=== PATIENT | female | born 1960 | race American Indian/Alaskan Native ===

== ENCOUNTER 2016-10-12 14:59 | Inpatient (IN) | payer OTHER ==
[2016-10-12] MEDS ORDERED: NACL 0.9% 1000 ML 1,000 ML IV ONE ×2 (16:00→19:13)
[2016-10-12 17:16] LABS: Alanine Aminotransferase 29 units/L (7-56); Alkaline Phosphatase 308 units/L (35-129); Anion Gap 27 mmol/L; Bilirubin,Total < 0.2 mg/dL (0.1-1.2); Blood Urea Nitrogen 90 mg/dL (7-17); Calcium 10.3 mg/dL (8.4-10.2); Carbon Dioxide 14 mmol/L (22-30); Glucose 109 mg/dL (65-100); Lipase 37 units/L (13-60); Potassium 5.9 mmol/L (3.6-5.0); Sodium 130 mmol/L (137-145); Total Protein 8.1 g/dL (6.3-8.2)
[2016-10-12 17:23] LABS: Basophils % (Auto) 0.7 % (0.0-1.8); Eosinophils % (Auto) 5.2 % (0.0-4.3); Hematocrit 30.3 % (30.3-42.9); Hemoglobin 10.1 gm/dl (10.1-14.3); Mean Corpuscular HGB Conc 33 % (30-34); Mean Corpuscular Hemoglobin 31 pg (28-32); Mean Corpuscular Volume 92 fl (79-97); Platelet Count 592 K/mm3 (140-440); Red Blood Count 3.29 M/mm3 (3.65-5.03); Red Cell Distribution Width 16.9 % (13.2-15.2); White Blood Count 5.4 K/mm3 (4.5-11.0)
[2016-10-12 17:32] LABS: INR 1.06 (0.87-1.13); Partial Thromboplastin Time 30.4 Sec. (24.2-36.6)
[2016-10-12] MEDS ORDERED: ZOFRAN IV ONE (19:13)
[2016-10-12] MEDS ORDERED: MORPHINE IV ONE (19:13)
[2016-10-12] MEDS ORDERED: KIONEX PO ONE (19:14)
[2016-10-12] MEDS ORDERED: PROVENTIL IH ONE (19:14)
--- NOTE | 2016-10-12 19:14 | Emergency Department Report ---
HPI - General Chief Complaint: GI Bleed - HPI HPI: The patient is a 65-year-old female status post colostomy, who presents for evaluation of abdominal pain. The patient reports midline lower abdominal pain for the past 2 days, constant since onset, cramping in quality, at times sharp, moderate to severe, and associated with bleeding into her colostomy bad. The patient denies fever, chills, night sweats, dysuria, hematuria, flank pain, genital discharge, chest pain, dyspnea. ED Past Medical Hx - Social History Smoking Status: Never Smoker Substance Use Type: None - Medications Home Medications: Home Medications Medication Instructions Recorded Confirmed Last Taken Type metroNIDAZOLE [Flagyl] 500 mg PO Q8HR #21 tablet 09/03/15 Unknown Rx ED Review of Systems ROS: Stated complaint: BLEEDING INTO COLOSTOMY BAG Other details as noted in HPI Constitutional: denies: fever ENT: denies: throat or neck pain Respiratory: denies: cough, shortness of breath Cardiovascular: denies: chest pain Endocrine: denies unexplained weight loss or gain Gastrointestinal: reports abdominal pain Genitourinary: denies: dysuria Musculoskeletal: denies: leg swelling Skin: denies: rash Neurological: denies: headache Hematological/Lymphatic: denies: easy bleeding or easy bruising Psych: denies sadness or hopelessness Physical Exam - Physical Exam Vital Signs: Vital Signs 10/12/16 15:54 Temperature 97.8 F Pulse Rate 117 H Respiratory 18 Rate Blood Pressure 102/66 O2 Sat by Pulse 100 Oximetry Physical Exam: General: well-nourished, well-developed, no acute distress Head: Normocephalic, atraumatic Eyes: normal sclera ENT: Mucous membranes are pink and moist Neck: trachea midline, neck supple, No neck stiffness, no cervical adenopathy Respiratory: Breath sounds equal bilaterally, no wheezing, rales, or rhonchi Cardio: S1 and S2 present, no murmurs, rubs, gallops, capillary refill is brisk Abdomen: Normoactive bowel sounds, soft abdomen, peribumbicial tenderness to palpation present, no rigidity, no guarding or rebound tenderness Musc: No pitting edema Skin: No rash Neuro: no facial drooping, normal speech Psych: Normal affect ED Course Vital Signs 10/12/16 15:54 Temperature 97.8 F Pulse Rate 117 H Respiratory 18 Rate Blood Pressure 102/66 O2 Sat by Pulse 100 Oximetry ED Medical Decision Making - Lab Data Result diagrams: 10/12/16 16:27 10/12/16 16:27 - Medical Decision Making The patient was seen and examined by myself. The patient is placed on a cardiac monitor technician and continuous pulse ox. On initial evaluation, the patient was found to be in no distress. Evaluation orders were placed. The patient is given 1 L normal saline fluid bolus for treatment of dehydration, IV Zofran, and IV morphine for pain. Lab results revealed elevated potassium level 5.9, and elevated creatinine of 2.0. An albuterol nebulizer treatment, IV calcium gluconate, and Kayexalate are ordered for treatment of the patient's hyperkalemia. The on-call hospitalist service was contacted. They agreed to admit the patient for further treatment and close monitoring. The ED admit order was placed. The patient was admitted in guarded condition. Critical care attestation.: If time is entered above; I have spent that time in minutes in the direct care of this critically ill patient, excluding procedure time. ED Disposition Clinical Impression: Abdominal pain, acute, periumbilical, Acute hyperkalemia, Dehydration ARF (acute renal failure) Qualifiers: Acute renal failure type: unspecified Qualified Code(s): N17.9 - Acute kidney failure, unspecified Disposition: OP ADMITTED IP TO THIS HOSP Is pt being admited?: Yes Does the pt Need Aspirin: Yes Condition: Serious Referrals: PRIMARY CARE, [Primary Care Provider] - 3-5 Days Forms: Accompanied Note Time of Disposition: 19:05
--- NOTE | 2016-10-12 19:28 | Admit Criteria Form ---
Admission Criteria Documentation: URINARY COMPLICATIONS Clinical Indications for Inpatient Care (Place 'X' for any and all applicable criteria): Ongoing inpatient care may be indicated for urinary complications with ANY ONE of the following: [ ]I. Urinary tract infection requiring inpatient care as indicated by ANY ONE of the following(8)(19)(20): [ ]a) Severe symptoms (eg, high fever, severe pain) [ ]b) Vomiting or dehydration requiring ongoing inpatient care [ ]c) IV antibiotic needs that cannot be managed at lower level of care [ ]d) Hemodynamic instability [ ]e) Obstruction of collecting system by stone or tumor [ ]II. Urinary retention requiring drainage or surgery (3)(4)(5)(17)(18) [X ]III. Renal failure (Use Renal Failure Criteria for further information.) [ ]IV. Oliguria(30) [ ]V. Post obstructive diuresis requiring close monitoring of urine output and intravenous compensation for excessive fluid losses(33) Extended stay beyond goal length of stay for primary condition may be needed until ALL of the following are present(3)(4)(5)(8): [ ]a) Renal function (creatinine) at baseline, or daily decreases in creatinine consistent with renal function return [ ]b) Voiding adequately or with urinary catheter or percutaneous suprapubic tube and management regimen in place that is performable at lower level of care. [ ]c) Urine output adequate [ ]d) Fever absent or resolving [ ]e) Infection absent or treatable at next level of care The original [employer] content created by [employer] has been revised. The portions of the content which have been revised are identified through the use of italic text or in bold, and [facility] has neither reviewed nor approved the modified material. All other unmodified content is copyright [employer] Please see references footnoted in the original [facility] edition 2016 Admission Criteria Met: Yes
[2016-10-12] MEDS ORDERED: CALCIUM GLUCONATE 1,000 MG in NACL 0.9% 100 ML IV ONE (20:30)
[2016-10-12] MEDS ORDERED: TYLENOL PO PRN (22:54)
--- NOTE | 2016-10-12 22:55 | History and Physical Report ---
History of Present Illness Date of examination: 10/12/16 Date of admission: 10/12/16 19:24 History of present illness: 5-year-old woman with a history of rectal cancer comes emergency room because she had noted blood coming from the colostomy site starting yesterday. Patient ran out of her colostomy bag few days now Patient denies chest pain, palpitation, shortness of breath, cough, abdominal pain, hematochezia, dysuria, frequency, focal weakness, dysarthria, fever chills , polydipsia polyuria, hot or cold intolerance, easy bruisability, or rash or bleeding from mucosal membrane, rhinorrhea, epistaxis, earache, tinnitus, blurry vision, eye discharge, anxiety, depression. Other review of systems negative PAST SURGICAL HISTORY: Colostomy SOCIAL HISTORY: Does not smoke, drink or any drug use in the last months FAMILY HISTORY: Hypertension Medications and Allergies Allergies Allergy/AdvReac Type Severity Reaction Status Date / Time No Known Allergies Allergy Verified 09/03/15 02:33 Home Medications Medication Instructions Recorded Confirmed Last Taken Type metroNIDAZOLE [Flagyl] 500 mg PO Q8HR #21 tablet 09/03/15 Unknown Rx Exam - Physical Exam Narrative exam: Gen. appearance: Patient lying in bed, no apparent distress HEENT: Normocephalic, atraumatic, pupils equally round and reactive to light, extraocular movement intact, and no sclericterus,. No JVD or thyromegaly or nodule,neck supple, no carotid bruit ,mucous membranes moist, no exudate or erythema Heart: S1, S2, regular rate and rhythm Lungs: Clear to auscultation bilaterally, breathing comfortable Abdomen: Stoma site without erythema, no blood noted, Positive bowel sounds, nontender, nondistended, no organomegaly Extremity: No edema, cyanosis, clubbing Skin: No rash, nodules, warm, dry Neuro: Oriented 3, cranial nerves II-12 intact, speech is fluent, motor and sensory intact - Constitutional Vitals: Temp Pulse Resp BP Pulse Ox 97.8 F 115 H 21 107/60 100 10/12/16 15:54 10/12/16 21:40 10/12/16 21:40 10/12/16 21:40 10/12/16 21:40 Results - Labs CBC & Chem 7: 10/12/16 16:27 10/12/16 16:27 Assessment and Plan GI bleed/bleeding from colostomy Acute Renal failure Hyperkalemia, status post treatment History of rectal cancer Admits medicine Start IV fluid, obtain CAT scan of the abdomen and pelvis Consult GI, check serial hemoglobin, start IV morphine Start DVT prophylaxis
[2016-10-13] MEDS: BENADRYL PO PRN (01:39)
[2016-10-13] MEDS: NACL 0.9% 1000 ML 1,000 ML IV SCH ×2 (01:39→17:33)
[2016-10-13] MEDS: MORPHINE IV PRN ×5 (01:40→21:31)
[2016-10-13 01:56] LABS: Hematocrit 26.7 % (30.3-42.9); Hemoglobin 8.7 gm/dl (10.1-14.3)
--- NOTE | 2016-10-13 02:04 | Cat Scan Report ---
FINAL REPORT PROCEDURE: CT ABDOMEN PELVIS WO CON TECHNIQUE: Computerized axial tomography of the abdomen and pelvis was performed without intravenous contrast. This study is performed without intravascular contrast material and its sensitivity for abdominal and pelvic pathology, including neoplasms, inflammation, abscess, free fluid, thrombosis, arterial dissection and infarction, is reduced compared with a contrast enhanced study. HISTORY: bleeding from colostomy COMPARISON: No prior studies are available for comparison. FINDINGS: Visualized lower thorax: No significant abnormality. Liver: Normal size and attenuation. Spleen: Normal size and attenuation. Gallbladder and biliary system: Normal. Pancreas: Normal. Adrenals: Normal. Kidneys: Normal. GI tract: No obstruction is seen. There is moderate fecal debris in the colon. The ostomy in the right mid abdomen is patent. There has been previous surgery in the mid lower abdomen and posterior pelvic region.. Lymph nodes and mesentery: Normal. Vasculature: Mild atherosclerosis of the aorta. Bladder: Normal. Reproductive organs: The uterus is slightly enlarged. Fibroid formation is suspected.. Peritoneum: No free fluid. Musculoskeletal structures: No significant abnormality. Other: None. IMPRESSION: Moderate fecal debris identified within the colon. The mid right abdominal ostomy appears patent. No obstruction is seen. Evaluation the bowel is limited without oral and IV contrast. The uterus is slightly enlarged. Fibroid formation is suspected..
[2016-10-13 08:04] LABS: Hematocrit 22.6 % (30.3-42.9); Hemoglobin 7.6 gm/dl (10.1-14.3); Red Blood Count 2.49 M/mm3 (3.65-5.03); White Blood Count 4.8 K/mm3 (4.5-11.0)
[2016-10-13 08:05] LABS: Mean Corpuscular HGB Conc 34 % (30-34); Mean Corpuscular Hemoglobin 31 pg (28-32); Mean Corpuscular Volume 91 fl (79-97); Platelet Count 426 K/mm3 (140-440); Red Cell Distribution Width 16.6 % (13.2-15.2)
[2016-10-13 08:49] LABS: BUN/Creatinine Ratio 52.5; Calcium 8.9 mg/dL (8.4-10.2); Chloride 109.1 mmol/L (98-107)
[2016-10-13] MEDS ORDERED: NACL 0.9% 500 ML 500 ML IV ONE ×2 (08:58→09:02)
[2016-10-13 09:00] LABS: Blastocytes % (Manual) 0 %; Diff Status Complete; Hypochromasia Few; Large Platelets Few; Platelet Clumps Rare; Platelet Estimate Appears Increased; Smudge Cells Few
--- NOTE | 2016-10-13 15:09 | Gastroenterology Consultation ---
History of Present Illness - Reason for Consult Consult date: 10/13/16 GI bleeding Requesting physician: VICENTE ALLAN - History of Present Illness Ms Zaragoza is a 55-year-old woman with a history of rectal cancer comes emergency room because noted blood in her colostomy x 24 hours. She reports she has a hx of rectal cancer diagnosed at [place] last year. She also underwent chemo/radiation and surgery at [place]. She denies abdominal pain or routine NSAID use. On admission H/H stable with noted drop overnight from 10.1/30.3 tp 7.6/22.6. Currently receiving PRBC. Past History Past Medical History: cancer Past Surgical History: Other (bowel resection/ colostomy) Social history: lives with family Family history: no significant family history Medications and Allergies Allergies Allergy/AdvReac Type Severity Reaction Status Date / Time No Known Allergies Allergy Verified 09/03/15 02:33 Home Medications Medication Instructions Recorded Confirmed Last Taken Type metroNIDAZOLE [Flagyl] 500 mg PO Q8HR #21 tablet 09/03/15 10/13/16 Unknown Rx Active Meds: Active Medications Acetaminophen (Tylenol) 650 mg PO Q4H PRN PRN Reason: Pain MILD(1-3)/Fever >100.5/ADHIKARI Diphenhydramine HCl (Benadryl) 25 mg PO Q6H PRN PRN Reason: Itching Last Admin: 10/13/16 01:39 Dose: 25 mg Sodium Chloride (Nacl 0.9% 1000 Ml) 1,000 mls @ 100 mls/hr IV DIRECT JUAQUIN Last Admin: 10/13/16 01:39 Dose: 100 mls/hr Pantoprazole Sodium 80 mg/ (Sodium Chloride) 100 mls @ 10 mls/hr IV Q10H JUAQUIN PRN Reason: 8 MG/HR Morphine Sulfate (Morphine) 2 mg IV Q4H PRN PRN Reason: Pain, Moderate (4-6) Last Admin: 10/13/16 10:00 Dose: 2 mg Ondansetron HCl (Zofran) 4 mg IV Q8H PRN PRN Reason: N/V unrelieved by Reglan Review of Systems - Review of Systems Constitutional: fatigue, weakness Gastrointestinal: other (BRB per colostomy) Exam - Constitutional Vital Signs: Temp Pulse Resp BP Pulse Ox 98.7 F 89 16 97/56 100 10/13/16 14:32 10/13/16 14:32 10/13/16 09:39 10/13/16 14:32 10/13/16 09:39 General appearance: no acute distress, other (thin) - EENT Eyes: EOM intact ENT: hearing intact - Neck Neck: supple - Respiratory Respiratory: bilateral: CTA - Cardiovascular Rhythm: regular Heart Sounds: Present: S1 & S2, systolic murmur Extremities: No edema - Gastrointestinal General gastrointestinal: Present: non-distended, normal bowel sounds, other ( colostomy) - Integumentary Integumentary: Present: warm, dry - Neurologic Neurological: alert and oriented x3 - Psychiatric Psychiatric: cooperative - Labs CBC & Chem 7: 10/13/16 07:29 10/13/16 07:29 Lab Results: Laboratory Results - last 24 hr 10/13/16 10/13/16 10/13/16 01:30 07:29 07:29 WBC 4.8 RBC 2.49 L Hgb 8.7 L 7.6 L Hct 26.7 L 22.6 L MCV 91 MCH 31 MCHC 34 RDW 16.6 H Plt Count 426 [place] % (Auto) Staple Cutter Add Manual Diff Complete Total Counted 100 Seg Neuts % (Manual) 64.0 Band Neutrophils % 1.0 Lymphocytes % (Manual) 8.0 L Reactive Lymphs % (Man) 1.0 Monocytes % (Manual) 13.0 H Eosinophils % (Manual) 11.0 H Basophils % (Manual) 2.0 H Metamyelocytes % 0 Myelocytes % 0 Promyelocytes % 0 Blast Cells % 0 Nucleated RBC % Not Reportable Seg Neutrophils # Man 3.1 Band Neutrophils # 0.0 Lymphocytes # (Manual) 0.4 L Abs React Lymphs (Man) 0.0 Monocytes # (Manual) 0.6 Eosinophils # (Manual) 0.5 H Basophils # (Manual) 0.1 Metamyelocytes # 0.0 Myelocytes # 0.0 Promyelocytes # 0.0 Blast Cells # 0.0 WBC Morphology Not Reportable Hypersegmented Neuts Not Reportable Hyposegmented Neuts Not Reportable Hypogranular Neuts Not Reportable Smudge Cells Few Toxic Granulation Not Reportable Toxic Vacuolation Not Reportable Dohle Bodies Not Reportable Pelger-Huet Anomaly Not Reportable Laney Rods Not Reportable Platelet Estimate Appears increased Clumped Platelets Rare Plt Clumps, EDTA Not Reportable Large Platelets Few Giant Platelets Not Reportable Platelet Satelliting Not Reportable Plt Morphology Comment Not Reportable RBC Morphology Not Reportable Dimorphic RBCs Not Reportable Polychromasia Not Reportable Hypochromasia Few Poikilocytosis Not Reportable Anisocytosis Not Reportable Microcytosis Not Reportable Macrocytosis Not Reportable Spherocytes Not Reportable Pappenheimer Bodies Not Reportable Sickle Cells Not Reportable Target Cells Not Reportable Tear Drop Cells Not Reportable Ovalocytes Not Reportable Helmet Cells Not Reportable [place] Bodies Not Reportable [place] Rings Not Reportable [place] Cells Not Reportable Bite Cells Not Reportable Crenated Cell Not Reportable Elliptocytes Not Reportable Acanthocytes (Spur) Not Reportable Rouleaux Not Reportable Hemoglobin C Crystals Not Reportable Schistocytes Not Reportable Malaria parasites Not Reportable Helder Bodies Not Reportable Hem Pathologist Commnt No Sodium 139 D Potassium 5.0 Chloride 109.1 H Carbon Dioxide 15 L Anion Gap 20 BUN 63 H Creatinine 1.2 Estimated GFR 56 BUN/Creatinine Ratio 52.50 Glucose 95 Calcium 8.9 Assessment and Plan 1. GI bleed -No blood per colostomy at this time, but concern for rapid UGI bleed with elevated BUN and significant drop in H/H. -S/P PRBC -INR WNL -NPO -EGD today. -PPI gtt started per primary -Further recommendations to follow EGD.
[2016-10-13] MEDS ORDERED: DIPRIVAN 10 MG/ML IV ONE ×2 (15:50)
--- NOTE | 2016-10-13 16:16 | Anesthesia Day of Surgery ---
Anesthesia Day of Surgery - Day of Surgery Patient Examined: Yes Patient H&P Reviewed: Yes Patient is NPO: Yes
--- NOTE | 2016-10-13 16:16 | Anesthesia Consultation ---
Anesthesia Consult and Med Hx Date of service: 10/13/16 - Airway Anesthetic Teeth Evaluation: Poor Mallampati Class: Class II Intubation Access Assessment: Probably Good - Pulmonary Exam CTA: Yes - Cardiac Exam Cardiac Exam: RRR - Pre-Operative Health Status ASA Pre-Surgery Classification: ASA3 Proposed Anesthetic Plan: MAC - Pulmonary Hx Smoking: Yes Hx Asthma: Yes COPD: No Hx Pneumonia: No Hx Sleep Apnea: No - Cardiovascular System Hx Hypertension: No Hx Heart Attack/AMI: No - Central Nervous System Hx Seizures: No CVA: No Hx Psychiatric Problems: No - Endocrine Hx Renal Disease: No Hx End Stage Renal Disease: No Hx Liver Disease: No - Hematic Hx Anemia: Yes (recieved 2 PRBC) Hx Sickle Cell Disease: No - Other Systems Hx Cancer: Yes (rectal CA sp colostomy) - Additional Comments Anesthesia Medical History Comments: NAC
--- NOTE | 2016-10-13 16:24 | Post Operative Note ---
Pre-op diagnosis: GI bleed Post-op diagnosis: same Findings: EGD: hiatal hernia - irregular z-line (bx's) - mild gastritis - otherwise benign
[2016-10-13] MEDS ORDERED: WATER FOR IRRIG STERILE IR ONE (16:37)
[2016-10-13] MEDS: PROTONIX 80 MG in NACL 0.9% 100 ML IV SCH (17:33)
[2016-10-13] MEDS ORDERED: GOLYTELY PO ONE (18:00)
--- NOTE | 2016-10-13 18:10 | Progress Note ---
Assessment and Plan Assessment and plan: 55-year-old woman with a history of rectal cancer comes emergency room because she had noted blood coming from the colostomy site starting yesterday. Patient ran out of her colostomy bag few days now Patient denies chest pain, palpitation, shortness of breath, cough, abdominal pain, hematochezia, dysuria, frequency, focal weakness, dysarthria, fever chills , polydipsia polyuria, hot or cold intolerance, easy bruisability, or rash or bleeding from mucosal membrane, rhinorrhea, epistaxis, earache, tinnitus, blurry vision, eye discharge, anxiety, depression. Other review of systems negative * Acute blood loss anemia concerning for upper GI bleed * Prerenal azotemia * Acute kidney injury present on admission likely * Hyperkalemia * Rectal CA-last radiation therapy 4 months ago awaiting reevaluation Plan * Discussed with GI team for endoscopy this morning * Transfuse 2 units packed red blood cells * Replace electrolytes * Pain control * DVT and GI prophylaxis avoid antiplatelets The high probability of a clinically significant, sudden or life threatening deterioration of the [hematology] system(s) required my full and direct attention, intervention and personal management. The aggregate critical care time was [35] minutes. This time is in addition to time spent performing reported procedures but includes the following: [x] Data Review and interpretation [x] Patient assessment and monitoring of vital signs [x] Documentation [x] Medication orders and management History Interval history: F/U Bleed in colostomy Patient seen and examined this morning in no acute distress Denies any chest pain, nausea, vomiting, diarrhea No fever noted blood pressure controlled No adverse events reported to me by nursing staff Hospitalist Physical - Physical exam Narrative exam: VITAL SIGNS: Reviewed. GENERAL: The patient appeared, cachectic. Vital signs as documented. HEAD: No signs of head trauma. Temporal wasting EYES: Pupils are equal. Extraocular motions intact. EARS: Hearing grossly intact. MOUTH: Oropharynx is normal. NECK: No adenopathy, no JVD. CHEST: Chest with clear breath sounds bilaterally. No wheezes, rales, or rhonchi. CARDIAC: Regular rate and rhythm. S1 and S2, without murmurs, gallops, or rubs. VASCULAR: No Edema. Peripheral pulses normal and equal in all extremities. ABDOMEN: Soft, without detectable tenderness. Colostomy bag in place no bleeding noted. No sign of distention. No rebound or guarding, and no masses palpated. Bowel Sounds normal. MUSCULOSKELETAL: Good range of motion of all major joints. Extremities without clubbing, cyanosis or edema. NEUROLOGIC EXAM: Alert and oriented x 3. No focal sensory or strength deficits. Speech normal. Follows commands. PSYCHIATRIC: Mood normal. SKIN: No rash or lesions. - Constitutional Vitals: Temp Pulse Resp BP Pulse Ox 98.1 F 102 H 16 99/61 97 10/13/16 17:40 10/13/16 17:40 10/13/16 17:40 10/13/16 17:40 10/13/16 17:40 Results - Labs CBC & Chem 7: 10/13/16 07:29 10/13/16 07:29 Labs: Laboratory Last Values WBC 4.8 K/mm3 (4.5-11.0) 10/13/16 07:29 RBC 2.49 M/mm3 (3.65-5.03) L 10/13/16 07:29 Hgb 7.6 gm/dl (10.1-14.3) L 10/13/16 07:29 Hct 22.6 % (30.3-42.9) L 10/13/16 07:29 MCV 91 fl (79-97) 10/13/16 07:29 MCH 31 pg (28-32) 10/13/16 07:29 MCHC 34 % (30-34) 10/13/16 07:29 RDW 16.6 % (13.2-15.2) H 10/13/16 07:29 Plt Count 426 K/mm3 (140-440) 10/13/16 07:29 Lymph % (Auto) 14.3 % (13.4-35.0) 10/12/16 16:27 Richardson % (Auto) Heel Packer 10/13/16 07:29 Eos % (Auto) 5.2 % (0.0-4.3) H 10/12/16 16:27 Baso % (Auto) 0.7 % (0.0-1.8) 10/12/16 16:27 Lymph # 0.8 K/mm3 (1.2-5.4) L 10/12/16 16:27 Richardson # 0.7 K/mm3 (0.0-0.8) 10/12/16 16: Eos # 0.3 K/mm3 (0.0-0.4) 10/12/16 16: Baso # 0.0 K/mm3 (0.0-0.1) 10/12/16 16:27 Add Manual Diff Complete 10/13/16 07:29 Total Counted 100 10/13/16 07:29 Seg Neutrophils % 66.6 % (40.0-70.0) 10/12/16 16:27 Seg Neuts % (Manual) 64.0 % (40.0-70.0) 10/13/16 07:29 Band Neutrophils % 1.0 % 10/13/16 07:29 Lymphocytes % (Manual) 8.0 % (13.4-35.0) L 10/13/16 07:29 Reactive Lymphs % (Man) 1.0 % 10/13/16 07:29 Monocytes % (Manual) 13.0 % (0.0-7.3) H 10/13/16 07:29 Eosinophils % (Manual) 11.0 % (0.0-4.3) H 10/13/16 07:29 Basophils % (Manual) 2.0 % (0.0-1.8) H 10/13/16 07:29 Metamyelocytes % 0 % 10/13/16 07:29 Myelocytes % 0 % 10/13/16 07:29 Promyelocytes % 0 % 10/13/16 07:29 Blast Cells % 0 % 10/13/16 07:29 Nucleated RBC % Not Reportable 10/13/16 07:29 Seg Neutrophils # 3.6 K/mm3 (1.8-7.7) 10/12/16 16:27 Seg Neutrophils # Man 3.1 K/mm3 (1.8-7.7) 10/13/16 07:29 Band Neutrophils # 0.0 K/mm3 10/13/16 07:29 Lymphocytes # (Manual) 0.4 K/mm3 (1.2-5.4) L 10/13/16 07:29 Abs React Lymphs (Man) 0.0 K/mm3 10/13/16 07:29 Monocytes # (Manual) 0.6 K/mm3 (0.0-0.8) 10/13/16 07:29 Eosinophils # (Manual) 0.5 K/mm3 (0.0-0.4) H 10/13/16 07:29 Basophils # (Manual) 0.1 K/mm3 (0.0-0.1) 10/13/16 07:29 Metamyelocytes # 0.0 K/mm3 10/13/16 07:29 Myelocytes # 0.0 K/mm3 10/13/16 07:29 Promyelocytes # 0.0 K/mm3 10/13/16 07:29 Blast Cells # 0.0 K/mm3 10/13/16 07:29 WBC Morphology Not Reportable 10/13/16 07:29 Hypersegmented Neuts Not Reportable 10/13/16 07:29 Hyposegmented Neuts Not Reportable 10/13/16 07:29 Hypogranular Neuts Not Reportable 10/13/16 07:29 Smudge Cells Few 10/13/16 07:29 Toxic Granulation Not Reportable 10/13/16 07:29 Toxic Vacuolation Not Reportable 10/13/16 07:29 Dohle Bodies Not Reportable 10/13/16 07:29 Pelger-Huet Anomaly Not Reportable 10/13/16 07:29 Laney Rods Not Reportable 10/13/16 07:29 Platelet Estimate Appears increased 10/13/16 07:29 Clumped Platelets Rare 10/13/16 07:29 Plt Clumps, EDTA Not Reportable 10/13/16 07:29 Large Platelets Few 10/13/16 07:29 Giant Platelets Not Reportable 10/13/16 07:29 Platelet Satelliting Not Reportable 10/13/16 07:29 Plt Morphology Comment Not Reportable 10/13/16 07:29 RBC Morphology Not Reportable 10/13/16 07:29 Dimorphic RBCs Not Reportable 10/13/16 07:29 Polychromasia Not Reportable 10/13/16 07:29 Hypochromasia Few 10/13/16 07:29 Poikilocytosis Not Reportable 10/13/16 07:29 Anisocytosis Not Reportable 10/13/16 07:29 Microcytosis Not Reportable 10/13/16 07:29 Macrocytosis Not Reportable 10/13/16 07:29 Spherocytes Not Reportable 10/13/16 07:29 Pappenheimer Bodies Not Reportable 10/13/16 07:29 Sickle Cells Not Reportable 10/13/16 07:29 Target Cells Not Reportable 10/13/16 07:29 Tear Drop Cells Not Reportable 10/13/16 07:29 Ovalocytes Not Reportable 10/13/16 07:29 Helmet Cells Not Reportable 10/13/16 07:29 [place] Bodies Not Reportable 10/13/16 07:29 [place] Rings Not Reportable 10/13/16 07:29 [place] Cells Not Reportable 10/13/16 07:29 Bite Cells Not Reportable 10/13/16 07:29 Crenated Cell Not Reportable 10/13/16 07:29 Elliptocytes Not Reportable 10/13/16 07:29 Acanthocytes (Spur) Not Reportable 10/13/16 07:29 Rouleaux Not Reportable 10/13/16 07:29 Hemoglobin C Crystals Not Reportable 10/13/16 07:29 Schistocytes Not Reportable 10/13/16 07:29 Malaria parasites Not Reportable 10/13/16 07:29 Helder Bodies Not Reportable 10/13/16 07:29 Hem Pathologist Commnt No 10/13/16 07:29 PT 13.7 Sec. (12.2-14.9) 10/12/16 16:27 INR 1.06 (0.87-1.13) 10/12/16 16:27 APTT 30.4 Sec. (24.2-36.6) 10/12/16 16:27 Sodium 139 mmol/L (137-145) D 10/13/16 07:29 Potassium 5.0 mmol/L (3.6-5.0) 10/13/16 07:29 Chloride 109.1 mmol/L (98-107) H 10/13/16 07:29 Carbon Dioxide 15 mmol/L (22-30) L 10/13/16 07:29 Anion Gap 20 mmol/L 10/13/16 07:29 BUN 63 mg/dL (7-17) H 10/13/16 07:29 Creatinine 1.2 mg/dL (0.7-1.2) 10/13/16 07:29 Estimated GFR 56 ml/min 10/13/16 07:29 BUN/Creatinine Ratio 52.50 % 10/13/16 07:29 Glucose 95 mg/dL (65-100) 10/13/16 07:29 Calcium 8.9 mg/dL (8.4-10.2) 10/13/16 07:29 Total Bilirubin < 0.2 mg/dL (0.1-1.2) 10/12/16 16:27 AST 14 units/L (5-40) 10/12/16 16:27 ALT 29 units/L (7-56) 10/12/16 16:27 Alkaline Phosphatase 308 units/L (35-129) H 10/12/16 16:27 Total Protein 8.1 g/dL (6.3-8.2) 10/12/16 16:27 Albumin 4.0 g/dL (3.9-5) 10/12/16 16:27 Albumin/Globulin Ratio 1.0 % 10/12/16 16:27 Lipase 37 units/L (13-60) 10/12/16 16:27 Blood Type O POSITIVE 10/12/16 16:29 Antibody Screen Negative 10/12/16 16:29 Crossmatch See Detail 10/12/16 16:29
[2016-10-13 20:57] LABS: Hematocrit 36.5 % (30.3-42.9); Hemoglobin 11.8 gm/dl (10.1-14.3)
[2016-10-13] MEDS: ZOFRAN IV PRN (21:32)
[2016-10-14] MEDS: NACL 0.9% 1000 ML 1,000 ML IV SCH ×2 (01:59→15:08)
[2016-10-14] MEDS: BENADRYL PO PRN (01:59)
[2016-10-14] MEDS: MORPHINE IV PRN ×5 (02:00→20:52)
[2016-10-14] MEDS: PROTONIX 80 MG in NACL 0.9% 100 ML IV SCH ×2 (02:01→12:39)
[2016-10-14 07:57] LABS: Hematocrit 29.9 % (30.3-42.9); Hemoglobin 10.2 gm/dl (10.1-14.3); Mean Corpuscular HGB Conc 34 % (30-34); Mean Corpuscular Hemoglobin 31 pg (28-32); Mean Corpuscular Volume 89 fl (79-97); Platelet Count 337 K/mm3 (140-440); Red Blood Count 3.35 M/mm3 (3.65-5.03); Red Cell Distribution Width 16.2 % (13.2-15.2); White Blood Count 4.4 K/mm3 (4.5-11.0)
[2016-10-14 08:12] LABS: Anion Gap 18 mmol/L; Blood Urea Nitrogen 22 mg/dL (7-17); Calcium 8.4 mg/dL (8.4-10.2); Carbon Dioxide 16 mmol/L (22-30); Chloride 112.2 mmol/L (98-107); Glucose 75 mg/dL (65-100); Potassium 3.7 mmol/L (3.6-5.0); Sodium 142 mmol/L (137-145)
--- NOTE | 2016-10-14 13:45 | Gastroenterology Progress Note ---
Assessment and Plan GI: no signs bleeding overnight - pt did not prep for colonoscopy - follow h/h - plan colonoscopy in am Subjective Date of service: 10/14/16 Interval history: - reports no signs bleeding overnight. Reports unable to take prep for colonoscopy Objective - Constitutional Vitals: Temp Pulse Resp BP Pulse Ox 97.7 F 87 18 94/59 99 10/14/16 13:37 10/14/16 13:37 10/14/16 13:37 10/14/16 13:37 10/14/16 09:49 General appearance: no acute distress - Respiratory Respiratory: bilateral: CTA - Cardiovascular Rhythm: regular Heart Sounds: Present: S1 & S2 - Gastrointestinal General gastrointestinal: Present: soft, non-tender - Labs CBC & Chem 7: 10/14/16 06:55 10/14/16 06:55 Labs: Laboratory Results - last 24 hr 10/13/16 10/14/16 10/14/16 18:26 06:55 06:55 WBC 4.4 L RBC 3.35 L Hgb 11.8 D 10.2 Hct 36.5 D 29.9 L D MCV 89 MCH 31 MCHC 34 RDW 16.2 H Plt Count 337 Sodium 142 Potassium 3.7 D Chloride 112.2 H Carbon Dioxide 16 L Anion Gap 18 BUN 22 H Creatinine 0.5 L D Estimated GFR > 60 BUN/Creatinine Ratio 44.00 Glucose 75 Calcium 8.4
--- NOTE | 2016-10-14 16:02 | Progress Note ---
Assessment and Plan Assessment and plan: 55-year-old woman with a history of rectal cancer comes emergency room because she had noted blood coming from the colostomy site starting yesterday. Patient ran out of her colostomy bag few days now Patient denies chest pain, palpitation, shortness of breath, cough, abdominal pain, hematochezia, dysuria, frequency, focal weakness, dysarthria, fever chills , polydipsia polyuria, hot or cold intolerance, easy bruisability, or rash or bleeding from mucosal membrane, rhinorrhea, epistaxis, earache, tinnitus, blurry vision, eye discharge, anxiety, depression. Other review of systems negative * Acute blood loss anemia concerning for GI bleed * Prerenal azotemia * Acute kidney injury present on admission likely vasomotor nephropathy-resolved * Hyperkalemia * Metabolic acidosis * Rectal CA-last radiation therapy 4 months ago awaiting reevaluation Plan * Good response with 2 units packed red blood cell transfusion * Add bicarbonate to fluids * Attempt colonoscopy in the a.m. endoscopy was unremarkable for source of bleed * Replace electrolytes * Pain control * DVT and GI prophylaxis avoid antiplatelets History Interval history: F/U Bleed in colostomy Patient seen and examined this morning in no acute distress, she informs me she couldn't drink the prep for colonoscopy because it made her sick, will try again today. Denies any chest pain, nausea, vomiting, diarrhea No fever noted blood pressure controlled No adverse events reported to me by nursing staff Hospitalist Physical - Physical exam Narrative exam: VITAL SIGNS: Reviewed. GENERAL: The patient appeared, cachectic. Vital signs as documented. HEAD: No signs of head trauma. Temporal wasting EYES: Pupils are equal. Extraocular motions intact. EARS: Hearing grossly intact. MOUTH: Oropharynx is normal. NECK: No adenopathy, no JVD. CHEST: Chest with clear breath sounds bilaterally. No wheezes, rales, or rhonchi. CARDIAC: Regular rate and rhythm. S1 and S2, without murmurs, gallops, or rubs. VASCULAR: No Edema. Peripheral pulses normal and equal in all extremities. ABDOMEN: Soft, without detectable tenderness. Colostomy bag in place no bleeding noted. No sign of distention. No rebound or guarding, and no masses palpated. Bowel Sounds normal. MUSCULOSKELETAL: Good range of motion of all major joints. Extremities without clubbing, cyanosis or edema. NEUROLOGIC EXAM: Alert and oriented x 3. No focal sensory or strength deficits. Speech normal. Follows commands. PSYCHIATRIC: Mood normal. SKIN: No rash or lesions. - Constitutional Vitals: Temp Pulse Resp BP Pulse Ox 97.7 F 87 18 94/59 99 10/14/16 13:37 10/14/16 13:37 10/14/16 13:37 10/14/16 13:37 10/14/16 09:49 Results - Labs CBC & Chem 7: 10/14/16 06:55 10/14/16 06:55 Labs: Laboratory Last Values WBC 4.4 K/mm3 (4.5-11.0) L 10/14/16 06:55 RBC 3.35 M/mm3 (3.65-5.03) L 10/14/16 06:55 Hgb 10.2 gm/dl (10.1-14.3) 10/14/16 06:55 Hct 29.9 % (30.3-42.9) L D 10/14/16 06:55 MCV 89 fl (79-97) 10/14/16 06:55 MCH 31 pg (28-32) 10/14/16 06:55 MCHC 34 % (30-34) 10/14/16 06:55 RDW 16.2 % (13.2-15.2) H 10/14/16 06:55 Plt Count 337 K/mm3 (140-440) 10/14/16 06:55 Lymph % (Auto) 14.3 % (13.4-35.0) 10/12/16 16:27 Cotton % (Auto) Civil Service Clerk 10/13/16 07:29 Eos % (Auto) 5.2 % (0.0-4.3) H 10/12/16 16:27 Baso % (Auto) 0.7 % (0.0-1.8) 10/12/16 16:27 Lymph # 0.8 K/mm3 (1.2-5.4) L 10/12/16 16:27 [place] # 0.7 K/mm3 (0.0-0.8) 10/12/16 16:27 Eos # 0.3 K/mm3 (0.0-0.4) 10/12/16 16:27 Baso # 0.0 K/mm3 (0.0-0.1) 10/12/16 16:27 Add Manual Diff Complete 10/13/16 07:29 Total Counted 100 10/13/16 07:29 Seg Neutrophils % 66.6 % (40.0-70.0) 10/12/16 16:27 Seg Neuts % (Manual) 64.0 % (40.0-70.0) 10/13/16 07:29 Band Neutrophils % 1.0 % 10/13/16 07:29 Lymphocytes % (Manual) 8.0 % (13.4-35.0) L 10/13/16 07:29 Reactive Lymphs % (Man) 1.0 % 10/13/16 07:29 Monocytes % (Manual) 13.0 % (0.0-7.3) H 10/13/16 07:29 Eosinophils % (Manual) 11.0 % (0.0-4.3) H 10/13/16 07:29 Basophils % (Manual) 2.0 % (0.0-1.8) H 10/13/16 07:29 Metamyelocytes % 0 % 10/13/16 07:29 Myelocytes % 0 % 10/13/16 07:29 Promyelocytes % 0 % 10/13/16 07:29 Blast Cells % 0 % 10/13/16 07:29 Nucleated RBC % Not Reportable 10/13/16 07:29 Seg Neutrophils # 3.6 K/mm3 (1.8-7.7) 10/12/16 16:27 Seg Neutrophils # Man 3.1 K/mm3 (1.8-7.7) 10/13/16 07:29 Band Neutrophils # 0.0 K/mm3 10/13/16 07:29 Lymphocytes # (Manual) 0.4 K/mm3 (1.2-5.4) L 10/13/16 07:29 Abs React Lymphs (Man) 0.0 K/mm3 10/13/16 07:29 Monocytes # (Manual) 0.6 K/mm3 (0.0-0.8) 10/13/16 07:29 Eosinophils # (Manual) 0.5 K/mm3 (0.0-0.4) H 10/13/16 07:29 Basophils # (Manual) 0.1 K/mm3 (0.0-0.1) 10/13/16 07:29 Metamyelocytes # 0.0 K/mm3 10/13/16 07:29 Myelocytes # 0.0 K/mm3 10/13/16 07:29 Promyelocytes # 0.0 K/mm3 10/13/16 07:29 Blast Cells # 0.0 K/mm3 10/13/16 07:29 WBC Morphology Not Reportable 10/13/16 07:29 Hypersegmented Neuts Not Reportable 10/13/16 07:29 Hyposegmented Neuts Not Reportable 10/13/16 07:29 Hypogranular Neuts Not Reportable 10/13/16 07:29 Smudge Cells Few 10/13/16 07:29 Toxic Granulation Not Reportable 10/13/16 07:29 Toxic Vacuolation Not Reportable 10/13/16 07:29 Dohle Bodies Not Reportable 10/13/16 07:29 Pelger-Huet Anomaly Not Reportable 10/13/16 07:29 Laney Rods Not Reportable 10/13/16 07:29 Platelet Estimate Appears increased 10/13/16 07:29 Clumped Platelets Rare 10/13/16 07:29 Plt Clumps, EDTA Not Reportable 10/13/16 07:29 Large Platelets Few 10/13/16 07:29 Giant Platelets Not Reportable 10/13/16 07:29 Platelet Satelliting Not Reportable 10/13/16 07:29 Plt Morphology Comment Not Reportable 10/13/16 07:29 RBC Morphology Not Reportable 10/13/16 07:29 Dimorphic RBCs Not Reportable 10/13/16 07:29 Polychromasia Not Reportable 10/13/16 07:29 Hypochromasia Few 10/13/16 07:29 Poikilocytosis Not Reportable 10/13/16 07:29 Anisocytosis Not Reportable 10/13/16 07:29 Microcytosis Not Reportable 10/13/16 07:29 Macrocytosis Not Reportable 10/13/16 07:29 Spherocytes Not Reportable 10/13/16 07:29 Pappenheimer Bodies Not Reportable 10/13/16 07:29 Sickle Cells Not Reportable 10/13/16 07:29 Target Cells Not Reportable 10/13/16 07:29 Tear Drop Cells Not Reportable 10/13/16 07:29 Ovalocytes Not Reportable 10/13/16 07:29 Helmet Cells Not Reportable 10/13/16 07:29 [place] Bodies Not Reportable 10/13/16 07:29 [place] Rings Not Reportable 10/13/16 07:29 [place] Cells Not Reportable 10/13/16 07:29 Bite Cells Not Reportable 10/13/16 07:29 Crenated Cell Not Reportable 10/13/16 07:29 Elliptocytes Not Reportable 10/13/16 07:29 Acanthocytes (Spur) Not Reportable 10/13/16 07:29 Rouleaux Not Reportable 10/13/16 07:29 Hemoglobin C Crystals Not Reportable 10/13/16 07:29 Schistocytes Not Reportable 10/13/16 07:29 Malaria parasites Not Reportable 10/13/16 07:29 Helder Bodies Not Reportable 10/13/16 07:29 Hem Pathologist Commnt No 10/13/16 07:29 PT 13.7 Sec. (12.2-14.9) 10/12/16 16:27 INR 1.06 (0.87-1.13) 10/12/16 16:27 APTT 30.4 Sec. (24.2-36.6) 10/12/16 16:27 Sodium 142 mmol/L (137-145) 10/14/16 06:55 Potassium 3.7 mmol/L (3.6-5.0) D 10/14/16 06:55 Chloride 112.2 mmol/L (98-107) H 10/14/16 06:55 Carbon Dioxide 16 mmol/L (22-30) L 10/14/16 06:55 Anion Gap 18 mmol/L 10/14/16 06:55 BUN 22 mg/dL (7-17) H 10/14/16 06:55 Creatinine 0.5 mg/dL (0.7-1.2) L D 10/14/16 06:55 Estimated GFR > 60 ml/min 10/14/16 06:55 BUN/Creatinine Ratio 44.00 % 10/14/16 06:55 Glucose 75 mg/dL (65-100) 10/14/16 06:55 Calcium 8.4 mg/dL (8.4-10.2) 10/14/16 06:55 Total Bilirubin < 0.2 mg/dL (0.1-1.2) 10/12/16 16:27 AST 14 units/L (5-40) 10/12/16 16:27 ALT 29 units/L (7-56) 10/12/16 16:27 Alkaline Phosphatase 308 units/L (35-129) H 10/12/16 16:27 Total Protein 8.1 g/dL (6.3-8.2) 10/12/16 16:27 Albumin 4.0 g/dL (3.9-5) 10/12/16 16:27 Albumin/Globulin Ratio 1.0 % 10/12/16 16:27 Lipase 37 units/L (13-60) 10/12/16 16:27 Blood Type O POSITIVE 10/12/16 16:29 Antibody Screen Negative 10/12/16 16:29 Crossmatch See Detail 10/12/16 16:29
[2016-10-14] MEDS: NACL 0.9% 1000 ML 1,000 ML with SODIUM BICARBONATE 25 MEQ IV SCH (16:54)
[2016-10-14] MEDS ORDERED: CITRATE OF MAGNESIA PO ONE (18:00)
[2016-10-15] MEDS: MORPHINE IV PRN ×4 (01:36→20:46)
[2016-10-15] MEDS: ZOFRAN IV PRN (01:36)
[2016-10-15] MEDS: BENADRYL PO PRN (01:39)
[2016-10-15] MEDS: NACL 0.9% 1000 ML 1,000 ML with SODIUM BICARBONATE 25 MEQ IV SCH ×2 (03:27→14:06)
[2016-10-15 07:47] LABS: Hematocrit 32.4 % (30.3-42.9); Hemoglobin 10.9 gm/dl (10.1-14.3)
[2016-10-15 08:03] LABS: Anion Gap 17 mmol/L; Blood Urea Nitrogen 10 mg/dL (7-17); Calcium 8.7 mg/dL (8.4-10.2); Carbon Dioxide 19 mmol/L (22-30); Glucose 85 mg/dL (65-100); Potassium 3.4 mmol/L (3.6-5.0); Sodium 148 mmol/L (137-145)
[2016-10-15] MEDS: PROTONIX PO SCH (10:00)
[2016-10-15] MEDS ORDERED: WATER FOR IRRIG STERILE IR ONE ×2 (13:10→16:02)
--- NOTE | 2016-10-15 13:59 | Anesthesia Consultation ---
Anesthesia Consult and Med Hx Date of service: 10/15/16 - Airway Anesthetic Teeth Evaluation: Poor (missing many on top and bottom, gold top tooth is loose) ROM Head & Neck: Adequate Mental/Hyoid Distance: Adequate Mallampati Class: Class III Intubation Access Assessment: Possibly Difficult - Pulmonary Exam CTA: Yes - Cardiac Exam Cardiac Exam: RRR - Pre-Operative Health Status ASA Pre-Surgery Classification: ASA3 Proposed Anesthetic Plan: MAC - Pulmonary Hx Smoking: Yes (quit 3 months ago, smoked for 20 years) Hx Asthma: Yes COPD: No Hx Pneumonia: No Hx Sleep Apnea: No - Cardiovascular System Hx Hypertension: No Hx Heart Attack/AMI: No - Central Nervous System Hx Seizures: No CVA: No Hx Psychiatric Problems: No - Endocrine Hx Renal Disease: No Hx End Stage Renal Disease: No Hx Liver Disease: Yes ("Liver Infection" per patient) - Hematic Hx Anemia: Yes (recieved 2 PRBC) Hx Sickle Cell Disease: No - Other Systems Hx Cancer: Yes (rectal CA sp colostomy) - Additional Comments Anesthesia Medical History Comments: underweight
--- NOTE | 2016-10-15 14:00 | Anesthesia Day of Surgery ---
Anesthesia Day of Surgery - Day of Surgery Patient Examined: Yes Patient H&P Reviewed: Yes Patient is NPO: Yes
[2016-10-15] MEDS: NACL 0.9% 1000 ML 1,000 ML IV SCH ×2 (14:08→17:17)
[2016-10-15] MEDS ORDERED: DIPRIVAN 10 MG/ML IV ONE ×2 (15:34)
--- NOTE | 2016-10-15 16:51 | Post Operative Note ---
Pre-op diagnosis: gi bleed Post-op diagnosis: same Findings: Colon: known mass rectum noted (bx's) - small bowel noted through ostomy w/o bleeding stigmata - negative other Procedure: Colonoscopy Anesthesia: MAC Surgeon: MAYRA DUCKWORTH Estimated blood loss: none Pathology: list Specimen disposition: to lab Condition: stable Disposition: floor
--- NOTE | 2016-10-15 19:38 | Progress Note ---
Assessment and Plan Assessment and plan: 55-year-old woman with a history of rectal cancer comes emergency room because she had noted blood coming from the colostomy site starting yesterday. Patient ran out of her colostomy bag few days now Patient denies chest pain, palpitation, shortness of breath, cough, abdominal pain, hematochezia, dysuria, frequency, focal weakness, dysarthria, fever chills , polydipsia polyuria, hot or cold intolerance, easy bruisability, or rash or bleeding from mucosal membrane, rhinorrhea, epistaxis, earache, tinnitus, blurry vision, eye discharge, anxiety, depression. Other review of systems negative * Acute blood loss anemia concerning for GI bleed * Prerenal azotemia * Acute kidney injury present on admission likely vasomotor nephropathy-resolved * Hyperkalemia * Metabolic acidosis * Rectal CA-last radiation therapy 4 months ago awaiting reevaluation Plan * Good response with 2 units packed red blood cell transfusion * continue bicarb infused IVF. * Colonoscopy done today, redemostrated known colon mass, small bowel noted through ostomy w/o bleeding stigmata . endoscopy was unremarkable for source of bleed * Replace electrolytes * Pain control * DVT and GI prophylaxis avoid antiplatelets * Monitor H.H * Discharge in am if stable. Follow with GI outpatient for biposy result. History Interval history: F/U Bleed in colostomy Patient seen and examined this morning in no acute distress, Planned for colonoscopy today Denies any chest pain, nausea, vomiting, diarrhea No fever noted blood pressure controlled No adverse events reported to me by nursing staff Hospitalist Physical - Physical exam Narrative exam: VITAL SIGNS: Reviewed. GENERAL: The patient appeared, cachectic. Vital signs as documented. HEAD: No signs of head trauma. Temporal wasting EYES: Pupils are equal. Extraocular motions intact. EARS: Hearing grossly intact. MOUTH: Oropharynx is normal. NECK: No adenopathy, no JVD. CHEST: Chest with clear breath sounds bilaterally. No wheezes, rales, or rhonchi. CARDIAC: Regular rate and rhythm. S1 and S2, without murmurs, gallops, or rubs. VASCULAR: No Edema. Peripheral pulses normal and equal in all extremities. ABDOMEN: Soft, without detectable tenderness. Colostomy bag in place no bleeding noted. No sign of distention. No rebound or guarding, and no masses palpated. Bowel Sounds normal. MUSCULOSKELETAL: Good range of motion of all major joints. Extremities without clubbing, cyanosis or edema. NEUROLOGIC EXAM: Alert and oriented x 3. No focal sensory or strength deficits. Speech normal. Follows commands. PSYCHIATRIC: Mood normal. SKIN: No rash or lesions. - Constitutional Vitals: Temp Pulse Resp BP Pulse Ox 98.2 F 80 14 140/76 99 10/15/16 16:03 10/15/16 16:45 10/15/16 16:47 10/15/16 16:45 10/15/16 16:45 Results - Labs CBC & Chem 7: 10/15/16 07:17 10/15/16 07:17 Labs: Laboratory Last Values WBC 4.4 K/mm3 (4.5-11.0) L 10/14/16 06:55 RBC 3.35 M/mm3 (3.65-5.03) L 10/14/16 06:55 Hgb 10.9 gm/dl (10.1-14.3) 10/15/16 07:17 Hct 32.4 % (30.3-42.9) 10/15/16 07:17 MCV 89 fl (79-97) 10/14/16 06:55 MCH 31 pg (28-32) 10/14/16 06:55 MCHC 34 % (30-34) 10/14/16 06:55 RDW 16.2 % (13.2-15.2) H 10/14/16 06:55 Plt Count 337 K/mm3 (140-440) 10/14/16 06:55 Lymph % (Auto) 14.3 % (13.4-35.0) 10/12/16 16:27 [place] % (Auto) [employer] 10/13/16 07:29 Eos % (Auto) 5.2 % (0.0-4.3) H 10/12/16 16:27 Baso % (Auto) 0.7 % (0.0-1.8) 10/12/16 16:27 Lymph # 0.8 K/mm3 (1.2-5.4) L 10/12/16 16:27 [place] # 0.7 K/mm3 (0.0-0.8) 10/12/16 16:27 Eos # 0.3 K/mm3 (0.0-0.4) 10/12/16 16:27 Baso # 0.0 K/mm3 (0.0-0.1) 10/12/16 16:27 Add Manual Diff Complete 10/13/16 07:29 Total Counted 100 10/13/16 07:29 Seg Neutrophils % 66.6 % (40.0-70.0) 10/12/16 16:27 Seg Neuts % (Manual) 64.0 % (40.0-70.0) 10/13/16 07:29 Band Neutrophils % 1.0 % 10/13/16 07:29 Lymphocytes % (Manual) 8.0 % (13.4-35.0) L 10/13/16 07:29 Reactive Lymphs % (Man) 1.0 % 10/13/16 07:29 Monocytes % (Manual) 13.0 % (0.0-7.3) H 10/13/16 07:29 Eosinophils % (Manual) 11.0 % (0.0-4.3) H 10/13/16 07:29 Basophils % (Manual) 2.0 % (0.0-1.8) H 10/13/16 07:29 Metamyelocytes % 0 % 10/13/16 07:29 Myelocytes % 0 % 10/13/16 07:29 Promyelocytes % 0 % 10/13/16 07:29 Blast Cells % 0 % 10/13/16 07:29 Nucleated RBC % Not Reportable 10/13/16 07:29 Seg Neutrophils # 3.6 K/mm3 (1.8-7.7) 10/12/16 16:27 Seg Neutrophils # Man 3.1 K/mm3 (1.8-7.7) 10/13/16 07:29 Band Neutrophils # 0.0 K/mm3 10/13/16 07:29 Lymphocytes # (Manual) 0.4 K/mm3 (1.2-5.4) L 10/13/16 07:29 Abs React Lymphs (Man) 0.0 K/mm3 10/13/16 07:29 Monocytes # (Manual) 0.6 K/mm3 (0.0-0.8) 10/13/16 07:29 Eosinophils # (Manual) 0.5 K/mm3 (0.0-0.4) H 10/13/16 07:29 Basophils # (Manual) 0.1 K/mm3 (0.0-0.1) 10/13/16 07:29 Metamyelocytes # 0.0 K/mm3 10/13/16 07:29 Myelocytes # 0.0 K/mm3 10/13/16 07:29 Promyelocytes # 0.0 K/mm3 10/13/16 07:29 Blast Cells # 0.0 K/mm3 10/13/16 07:29 WBC Morphology Not Reportable 10/13/16 07:29 Hypersegmented Neuts Not Reportable 10/13/16 07:29 Hyposegmented Neuts Not Reportable 10/13/16 07:29 Hypogranular Neuts Not Reportable 10/13/16 07:29 Smudge Cells Few 10/13/16 07:29 Toxic Granulation Not Reportable 10/13/16 07:29 Toxic Vacuolation Not Reportable 10/13/16 07:29 Dohle Bodies Not Reportable 10/13/16 07:29 Pelger-Huet Anomaly Not Reportable 10/13/16 07:29 Laney Rods Not Reportable 10/13/16 07:29 Platelet Estimate Appears increased 10/13/16 07:29 Clumped Platelets Rare 10/13/16 07:29 Plt Clumps, EDTA Not Reportable 10/13/16 07:29 Large Platelets Few 10/13/16 07:29 Giant Platelets Not Reportable 10/13/16 07:29 Platelet Satelliting Not Reportable 10/13/16 07:29 Plt Morphology Comment Not Reportable 10/13/16 07:29 RBC Morphology Not Reportable 10/13/16 07:29 Dimorphic RBCs Not Reportable 10/13/16 07:29 Polychromasia Not Reportable 10/13/16 07:29 Hypochromasia Few 10/13/16 07:29 Poikilocytosis Not Reportable 10/13/16 07:29 Anisocytosis Not Reportable 10/13/16 07:29 Microcytosis Not Reportable 10/13/16 07:29 Macrocytosis Not Reportable 10/13/16 07:29 Spherocytes Not Reportable 10/13/16 07:29 Pappenheimer Bodies Not Reportable 10/13/16 07:29 Sickle Cells Not Reportable 10/13/16 07:29 Target Cells Not Reportable 10/13/16 07:29 Tear Drop Cells Not Reportable 10/13/16 07:29 Ovalocytes Not Reportable 10/13/16 07:29 Helmet Cells Not Reportable 10/13/16 07:29 [place] Bodies Not Reportable 10/13/16 07:29 [place] Rings Not Reportable 10/13/16 07:29 Glenny Cells Not Reportable 10/13/16 07:29 Bite Cells Not Reportable 10/13/16 07:29 Crenated Cell Not Reportable 10/13/16 07:29 Elliptocytes Not Reportable 10/13/16 07:29 Acanthocytes (Spur) Not Reportable 10/13/16 07:29 Rouleaux Not Reportable 10/13/16 07:29 Hemoglobin C Crystals Not Reportable 10/13/16 07:29 Schistocytes Not Reportable 10/13/16 07:29 Malaria parasites Not Reportable 10/13/16 07:29 Helder Bodies Not Reportable 10/13/16 07:29 Hem Pathologist Commnt No 10/13/16 07:29 PT 13.7 Sec. (12.2-14.9) 10/12/16 16:27 INR 1.06 (0.87-1.13) 10/12/16 16:27 APTT 30.4 Sec. (24.2-36.6) 10/12/16 16:27 Sodium 148 mmol/L (137-145) H 10/15/16 07:17 Potassium 3.4 mmol/L (3.6-5.0) L 10/15/16 07:17 Chloride 115.0 mmol/L (98-107) H 10/15/16 07:17 Carbon Dioxide 19 mmol/L (22-30) L 10/15/16 07:17 Anion Gap 17 mmol/L 10/15/16 07:17 BUN 10 mg/dL (7-17) 10/15/16 07:17 Creatinine 0.5 mg/dL (0.7-1.2) L 10/15/16 07:17 Estimated GFR > 60 ml/min 10/15/16 07:17 BUN/Creatinine Ratio 20.00 % 10/15/16 07:17 Glucose 85 mg/dL (65-100) 10/15/16 07:17 Calcium 8.7 mg/dL (8.4-10.2) 10/15/16 07:17 Total Bilirubin < 0.2 mg/dL (0.1-1.2) 10/12/16 16:27 AST 14 units/L (5-40) 10/12/16 16:27 ALT 29 units/L (7-56) 10/12/16 16:27 Alkaline Phosphatase 308 units/L (35-129) H 10/12/16 16:27 Total Protein 8.1 g/dL (6.3-8.2) 10/12/16 16:27 Albumin 4.0 g/dL (3.9-5) 10/12/16 16:27 Albumin/Globulin Ratio 1.0 % 10/12/16 16:27 Lipase 37 units/L (13-60) 10/12/16 16:27 Blood Type O POSITIVE 10/12/16 16:29 Antibody Screen Negative 10/12/16 16:29 Crossmatch See Detail 10/12/16 16:29
--- NOTE | 2016-10-15 20:41 | Operative Report ---
PROCEDURE: Colonoscopy. INDICATION: 1. Gastrointestinal bleed. 2. Anemia. MEDICATIONS: Propofol per DIGITAL PUBLISHING SPECIALIST. COMPLICATIONS: None. DESCRIPTION OF PROCEDURE: The patient was brought to the procedure suite. The patient had the procedure discussed with her at length. All risks, complications, and benefits discussed, to which the patient signed for the procedure to be performed. The patient was placed in a left lateral decubitus position. Exam through the ostomy site was performed. After adequate sedation medication as above, endoscope placed through the ostomy into the rectum. Approximately, 40 cm of small bowel was visualized through the ostomy and the rectum approximately 25 cm was visualized. No retroflexion view was performed. The patient's vital signs remained stable throughout the procedure. FINDINGS: Visual inspection through the rectum showed a mass approximately 12 cm from the anal verge which was space occupying. Unable to further pass the mass. Some biopsies were taken, though this was presumed to be the patient's known rectal cancer. Scope was then passed through the ostomy site. There was noted to be . Small bowel was noted to approximately 35-40 cm. No signs of large intestine was noted. No signs of bleeding was noted. No further interventions were performed. The patient tolerated the procedure well. No complication procedure during the procedure. IMPRESSION: 1. Rectal mass noted which was previously known with biopsies taken. 2. Small bowel visualized through ostomy approximately 40 cm with no pathology noted. Ostomy site itself intact. RECOMMENDATIONS: 1. Advance diet. 2. Follow H and H and transfuse as needed. 3. Okay to discharge from GI standpoint in a.m. if H and H stable. JOB# [id number] [facility]
[2016-10-16] MEDS: BENADRYL PO PRN (00:44)
[2016-10-16] MEDS: MORPHINE IV PRN ×3 (00:45→10:18)
--- NOTE | 2016-10-16 07:18 | Discharge Summary ---
Providers - Providers Date of Admission: 10/12/16 19:24 Date of discharge: 10/16/16 Attending physician: VICENTE ALLAN MD 10/13/16 00:34 Consult to Physician [CONS] Routine Consulting Provider: MAYRA DUCKWORTH Reason For Exam: bleding from colostomy Notified:: litigation secretary pl call 10/13/16 18:13 Consult to Dietitian/Nutrition [CONS] Routine Physician Instructions: Reason For Exam: Reason for Consult: Malnutrition Primary care physician: HVAC INSTALLER Hospitalization Reason for admission: GI bleed Condition: Stable Hospital course: 55-year-old woman with a history of rectal cancer comes emergency room because she had noted blood coming from the colostomy site starting yesterday. Patient ran out of her colostomy bag few days now Patient denies chest pain, palpitation, shortness of breath, cough, abdominal pain, hematochezia, dysuria, frequency, focal weakness, dysarthria, fever chills , polydipsia polyuria, hot or cold intolerance, easy bruisability, or rash or bleeding from mucosal membrane, rhinorrhea, epistaxis, earache, tinnitus, blurry vision, eye discharge, anxiety, depression. Other review of systems negative on admission patient proceeded to have 2 unit of packed red blood cell transfusion. GI was consulted and did proceed with colonoscopy and endoscopy with no acute bleeding findings. They did see the colon mass that is already known about. Patient will continue chemotherapy and radiation therapy outpatient, follow with her oncologist. This was discussed with the patient detail. She is clinically stable at this point for discharge * Acute blood loss anemia concerning for GI bleed * Prerenal azotemia * Acute kidney injury present on admission likely vasomotor nephropathy-resolved * Hyperkalemia * Metabolic acidosis * Colonic mass-previously known * Rectal CA-last radiation therapy 4 months ago awaiting reevaluation Disposition: DISCHARGED TO HOME OR SELFCARE Time spent for discharge: 35 Core Measure Documentation - Palliative Care Palliative Care/ Comfort Measures: Not Applicable - Core Measures Any of the following diagnoses?: none - VTE Discharge Requirements Deep Vein Thrombosis/Pulmonary Embolism Present on Admission: No Exam - Physical Exam Narrative exam: VITAL SIGNS: Reviewed. GENERAL: The patient appeared, cachectic. Vital signs as documented. HEAD: No signs of head trauma. Temporal wasting EYES: Pupils are equal. Extraocular motions intact. EARS: Hearing grossly intact. MOUTH: Oropharynx is normal. NECK: No adenopathy, no JVD. CHEST: Chest with clear breath sounds bilaterally. No wheezes, rales, or rhonchi. CARDIAC: Regular rate and rhythm. S1 and S2, without murmurs, gallops, or rubs. VASCULAR: No Edema. Peripheral pulses normal and equal in all extremities. ABDOMEN: Soft, without detectable tenderness. Colostomy bag in place no bleeding noted. No sign of distention. No rebound or guarding, and no masses palpated. Bowel Sounds normal. MUSCULOSKELETAL: Good range of motion of all major joints. Extremities without clubbing, cyanosis or edema. NEUROLOGIC EXAM: Alert and oriented x 3. No focal sensory or strength deficits. Speech normal. Follows commands. PSYCHIATRIC: Mood normal. SKIN: No rash or lesions. - Constitutional Vitals: Temp Pulse Resp BP Pulse Ox 99.0 F 69 16 109/63 100 10/16/16 05:46 10/16/16 05:46 10/16/16 05:46 10/16/16 05:46 10/16/16 05:46 Plan Activity: advance as tolerated, fall precautions Diet: low fat Follow up with: PRIMARY MD HERMELINDA [Primary Care Provider] - 3-5 Days STEPHANIE GREENFIELD MD [Staff Physician] - 7 Days Forms: Accompanied Note Prescriptions: Pantoprazole [Protonix TAB] 40 mg PO DAILY #30 tablet
[2016-10-16 08:50] VITALS: BP 112/71
[2016-10-16] MEDS: PROTONIX PO SCH (10:18)
== END 2016-10-16 11:49 | disposition home or self-care (01) | DRG 393 ==
LOC: ED 14:59 → 4A 19:24
PROVIDERS: ADMIT Internal Medicine; ATTEND Internal Medicine
PROC: 30233N1 Transfusion of Nonautologous Red Blood Cells into Peripheral Vein, Percutaneous Approach (ICD-10-PCS; principal; 2016-10-12)
PROC: 0DB48ZX Excision of Esophagogastric Junction, Via Natural or Artificial Opening Endoscopic, Diagnostic (ICD-10-PCS; 2016-10-13)
PROC: 0DBP8ZX Excision of Rectum, Via Natural or Artificial Opening Endoscopic, Diagnostic (ICD-10-PCS; 2016-10-15)
DX: K94.01 Colostomy hemorrhage (principal); N17.0 Acute kidney failure with tubular necrosis; D62 Acute posthemorrhagic anemia; C20 Malignant neoplasm of rectum; J45.909 Unspecified asthma, uncomplicated; R10.33 Periumbilical pain; E87.5 Hyperkalemia; E86.0 Dehydration; Z85.048 Personal history of other malignant neoplasm of rectum, rectosigmoid junction, and anus; Z82.49 Family history of ischemic heart disease and other diseases of the circulatory system
CPT/HCPCS: 36415; 74176; 80048; 80053; 83690; 85007; 85014; 85018; 85025; 85027; 85610; 85730; 86850; 86900; 86901; 86920; 88305; 93005; 93010; 94644; 96365; 96375; C9113; J0610; J2270; J2405; J2704; J7030; J7040; P9016

== ENCOUNTER 2016-10-19 21:56 | Emergency (ER) | payer SELFPAY ==
[2016-10-19] MEDS ORDERED: DILAUDID IV ONE (23:09)
--- NOTE | 2016-10-19 23:15 | Emergency Department Report ---
ED Abdominal Pain HPI - General Chief Complaint: Abdominal Pain Stated Complaint: COLOSTOMY BAG LEAKING/PAINFUL Time Seen by Provider: 10/19/16 22:59 Source: patient, family, EMS Mode of arrival: Stretcher Limitations: No Limitations - History of Present Illness Initial Comments: 55-year-old female presents to the emergency department via EMS complaining of abdominal pain and leaking from her colostomy bag. Patient states that she has been leaking around her colostomy bag for about 1 month. She began having burning pain around her ostomy site today. She reports the pain is progressively gotten worse today. She states that she saw her primary care physician earlier today, but was given the same ostomy bags that are currently leaking. Patient denies fever, nausea, vomiting, or diarrhea. There are no other complaints. MD Complaint: abdominal pain -: Gradual, This morning Location: diffuse Radiation: none Severity: severe Quality: burning Consistency: constant Improves With: nothing Worsens With: nothing Associated Symptoms: denies other symptoms - Related Data Previous Rx's Medication Instructions Recorded Last Taken Type metroNIDAZOLE [Flagyl TAB] 500 mg PO Q8HR #21 tablet 09/03/15 Unknown Rx Pantoprazole [Protonix TAB] 40 mg PO DAILY #30 tablet 10/16/16 Unknown Rx Oxycodone HCl/Acetaminophen 1 each PO Q6HR PRN #30 tablet 10/20/16 Unknown Rx [Percocet 7.5/325 mg] Allergies Allergy/AdvReac Type Severity Reaction Status Date / Time No Known Allergies Allergy Verified 09/03/15 02:33 ED Review of Systems ROS: Stated complaint: CHOLOSTEMY BAG LEAKING/PAINFUL Other details as noted in HPI Comment: All other systems reviewed and negative Gastrointestinal: abdominal pain ED Past Medical Hx - Past Medical History Previous Medical History?: Yes Hx Hypertension: No Hx Heart Attack/AMI: No Hx Congestive Heart Failure: No Hx Diabetes: No Hx Pulmonary Embolism: No Hx Liver Disease: Yes ("Liver Infection" per patient) Hx Renal Disease: No Hx of Cancer: Yes (COLON) Hx Sickle Cell Disease: No Hx Seizures: No Hx Kidney Stones: No Hx Asthma: Yes Hx COPD: No Hx Tuberculosis: No Hx HIV: No - Surgical History Hx Open Heart Surgery: No Hx Cholecystectomy: No Hx Appendectomy: Yes Hx Breast Surgery: No Additional Surgical History: PARTIAL COLECTOMY, COLOSTOMY - Family History Family history: no significant - Social History Smoking Status: Never Smoker Substance Use Type: None - Medications Home Medications: Home Medications Medication Instructions Recorded Confirmed Last Taken Type metroNIDAZOLE [Flagyl TAB] 500 mg PO Q8HR #21 tablet 09/03/15 10/13/16 Unknown Rx Pantoprazole [Protonix TAB] 40 mg PO DAILY #30 tablet 10/16/16 Unknown Rx Oxycodone HCl/Acetaminophen 1 each PO Q6HR PRN #30 tablet 10/20/16 Unknown Rx [Percocet 7.5/325 mg] ED Physical Exam - General Limitations: No Limitations General appearance: alert, in distress (moderate distress secondary to pain) - Head Head exam: Present: atraumatic, normocephalic - Eye Eye exam: Present: normal appearance, PERRL, EOMI - ENT ENT exam: Present: normal exam, normal orophraynx, mucous membranes moist - Neck Neck exam: Present: normal inspection, full ROM. Absent: tenderness - Respiratory Respiratory exam: Present: normal lung sounds bilaterally. Absent: respiratory distress - Cardiovascular Cardiovascular Exam: Present: regular rate, normal rhythm, normal heart sounds - GI/Abdominal GI/Abdominal exam: Present: soft, tenderness (moderate diffuse tenderness), normal bowel sounds, other (left lower quadrant colostomy site noted. Surrounding skin is markedly erythematous and macerated.). Absent: distended, guarding, rebound - Extremities Exam Extremities exam: Present: normal inspection, full ROM. Absent: tenderness - Back Exam Back exam: Present: normal inspection, full ROM. Absent: tenderness - Neurological Exam Neurological exam: Present: alert, oriented X3. Absent: motor sensory deficit - Skin Skin exam: Present: warm, dry ED Course Vital Signs 10/19/16 10/19/16 23:58 23:59 Temperature 98.4 F Pulse Rate 97 H Respiratory 20 20 Rate Blood Pressure 113/66 [Left] O2 Sat by Pulse 100 Oximetry - Reevaluation(s) Reevaluation #1: 10/19/16 23:15 It appears that the patient's pain is secondary to stool leaking onto her skin directly causing skin breakdown. Giving IV pain medication. Will attempt to clean the area, place a properly sized colostomy bag and observe for leaking. ED Medical Decision Making - Medical Decision Making Patient's pain is markedly improved with medication. A new colostomy bag has been placed with no evidence of leaking around the back. Patient will be discharged home at this time to follow up with her primary care physician. - Differential Diagnosis colostomy malfunction, skin breakdown Critical care attestation.: If time is entered above; I have spent that time in minutes in the direct care of this critically ill patient, excluding procedure time. ED Disposition Clinical Impression: Colostomy complication, unspecified Abdominal pain Qualifiers: Abdominal location: generalized Qualified Code(s): R10.84 - Generalized abdominal pain Disposition: DISCHARGED TO HOME OR SELFCARE Is pt being admited?: No Condition: Stable Instructions: Colostomy Care (ED) Prescriptions: Oxycodone HCl/Acetaminophen [Percocet 7.5/325 mg] 1 each PO Q6HR PRN #30 tablet PRN Reason: Pain Referrals: PRIMARY CARE, [Primary Care Provider] - 3-5 Days Time of Disposition: 00:42
[2016-10-20 02:38] VITALS: BP 109/68
== END 2016-10-20 02:35 | disposition home or self-care (01) ==
LOC: ED 21:56
DX: K94.03 Colostomy malfunction (principal); J45.909 Unspecified asthma, uncomplicated; Z85.038 Personal history of other malignant neoplasm of large intestine; Z90.49 Acquired absence of other specified parts of digestive tract; Z90.89 Acquired absence of other organs; Y83.8 Other surgical procedures as the cause of abnormal reaction of the patient, or of later complication, without mention of misadventure at the time of the procedure
CPT/HCPCS: 96374; 99283; J1170

== ENCOUNTER 2017-04-29 21:41 | Emergency (ER) | payer MEDICAID, OTHER ==
[2017-04-29] MEDS ORDERED: PERCOCET 5/325 PO ONE (22:38)
--- NOTE | 2017-04-29 22:39 | Emergency Department Report ---
HPI - General Chief Complaint: Medical Clearance Time Seen by Provider: 04/29/17 22:37 - HPI HPI: She stated her colostomy bag was leaking. She couldn't wait for tomorrow when home health could come by to fix it. Denies any fever chills. Patient denies any abdominal pain. Has chronic pain, takes oxycodone at home, thinks one is due currently. ED Past Medical Hx - Past Medical History Previous Medical History?: Yes Hx Hypertension: No Hx Heart Attack/AMI: No Hx Congestive Heart Failure: No Hx Diabetes: No Hx Pulmonary Embolism: No Hx Liver Disease: Yes ("Liver Infection" per patient) Hx Renal Disease: No Hx Sickle Cell Disease: No Hx Seizures: No Hx Kidney Stones: No Hx Asthma: Yes Hx COPD: No Hx Tuberculosis: No Hx HIV: No - Surgical History Hx Open Heart Surgery: No Hx Cholecystectomy: No Hx Appendectomy: Yes Hx Breast Surgery: No Additional Surgical History: PARTIAL COLECTOMY, COLOSTOMY - Social History Smoking Status: Never Smoker Substance Use Type: Prescribed - Medications Home Medications: Home Medications Medication Instructions Recorded Confirmed Last Taken Type metroNIDAZOLE [Flagyl TAB] 500 mg PO Q8HR #21 tablet 09/03/15 10/13/16 Unknown Rx Pantoprazole [Protonix TAB] 40 mg PO DAILY #30 tablet 10/16/16 Unknown Rx Oxycodone HCl/Acetaminophen 1 each PO Q6HR PRN #30 tablet 10/20/16 Unknown Rx [Percocet 7.5/325 mg] ED Review of Systems ROS: Stated complaint: RUPTURED COLOSTOMY BAG Other details as noted in HPI Comment: All other systems reviewed and negative Endocrine: no symptoms reported Gastrointestinal: as per HPI Physical Exam - Physical Exam Physical Exam: GENERAL: The patient is well-developed well-nourished. HEENT: Normocephalic. Atraumatic. Extraocular motions are intact. Patient has moist mucous membranes. NECK: Supple. No meningitic signs are noted. There is no adenopathy noted. CHEST/LUNGS: Clear to auscultation. There is no respiratory distress noted. HEART/CARDIOVASCULAR: Regular. There is no tachycardia. There is no gallop rub or murmur. ABDOMEN: Abdomen is soft, nontender. Patient has normal bowel sounds. There is no abdominal distention. Cholecystectomy area appears D, C, I SKIN: There is no rash. There is no edema. There is no diaphoresis. NEURO: The patient is awake, alert, and oriented. The patient is cooperative. The patient has no focal neurologic deficits. The patient has normal speech and gait. Cranial nerves II through XII grossly intact, no drift. Negative Romberg MUSCULOSKELETAL: good rom in all ext ED Course - Reevaluation(s) Reevaluation #1: 04/29/17 22:46 Colostomy bag replaced by nurses. Area appears D, C, I Patient given 1 oxycodone by mouth, no home Rx given 04/29/17 22:46 Critical care attestation.: If time is entered above; I have spent that time in minutes in the direct care of this critically ill patient, excluding procedure time. ED Disposition Clinical Impression: Colostomy dysfunction, Chronic pain syndrome Disposition: DC- TO HOME OR SELFCARE Is pt being admited?: No Does the pt Need Aspirin: No Condition: Stable
[2017-04-29 22:47] VITALS: BP 105/68
== END 2017-04-29 23:15 | disposition home or self-care (01) ==
LOC: ED 21:41
DX: K94.03 Colostomy malfunction (principal); G89.4 Chronic pain syndrome; J45.909 Unspecified asthma, uncomplicated
CPT/HCPCS: 99283